=== PATIENT | female | born 1940 | race Caucasian/White ===

== ENCOUNTER → 2020-07-08 | Outpatient (CLI) | payer MEDICARE | END | disposition home or self-care (01) | LOC: LABPAT 14:21 | PROVIDERS: ATTEND Orthopaedic Surgery | DX: Z01.812 Encounter for preprocedural laboratory examination (principal) | CPT/HCPCS: 87070 ==

== ENCOUNTER 2020-08-12 05:34 | Day surgery (SDC) | payer MEDICARE ==
[2020-08-07 16:13] VITALS: BMI 22.4
--- NOTE | 2020-08-11 11:36 | HP ---
HISTORY AND PHYSICAL CHIEF COMPLAINT: Right knee pain. HISTORY OF PRESENT ILLNESS: Patient is a 80-year-old retired female who presents with progressive right knee pain for the past several years. It has worsened recently. She is ambulating with a cane. She notes the knee does give out and she has fallen twice recently. She has tried medications in addition to injections with only partial temporary relief. She notes the pain does significantly limit her function and activities. PAST MEDICAL HISTORY: Significant for COPD, arthritis, history of leukemia. PAST SURGICAL HISTORY: Significant for bone marrow transplant, bilateral eye surgery, and previous colonoscopy. CURRENT MEDICATIONS: Aspirin, atorvastatin. FAMILY HISTORY: Significant for heart disease and cancer. SOCIAL HISTORY: Significant for previous tobacco use. She also admits to social alcohol use. 16 POINT REVIEW OF SYSTEMS: Otherwise reviewed and is noncontributory. PHYSICAL EXAMINATION: On examination, the patient is approximately 4 foot 11, 115 pounds of mesomorphic habitus. HEENT: Exam is nonfocal. NECK: Supple. She has painless passive motion of the right hip. Straight leg raise is negative. Active motion right knee -10 to 115 degrees of flexion. She has a trace effusion. She is tender about the lateral joint line. Collaterals are stable, Karen is negative, Junior's is equivocal. She has genu valgum alignment. Her distal neurovascular appears intact in the right lower extremity. Previous weightbearing notch, lateral and Merchant views of the right knee obtained in the office show severe lateral and patellofemoral compartment narrowing with bone-on- bone changes. There is subchondral sclerosis. IMPRESSION: 1. 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 2. History of COPD. 3. History of leukemia. RECOMMENDATIONS: I talked to the patient at length regarding her condition and treatment options. At this point, she is quite limited because of pain related to her osteoarthrosis despite conservative measures. She opts to proceed with surgery. We will plan to proceed with right total knee arthroplasty. Risks and benefits were discussed at length in layman's terms. We will institute DVT prophylaxis postoperatively. The patient underwent preoperative medical evaluation by her primary care physician and bush hog operator. MMODL / IJN: [id number] /
[~2020-08-12 05:34] MED LIST: TRANEXAMIC ACID 1,000 MG in SODIUM CHLORIDE 0.9% 100 ML IVPB ONE
[2020-08-12] MEDS ORDERED: ROPIVACAINE 246.25 MG, EPINEPHrine 0.5 MG, KETOROLAC 30 MG, cloNIDine HCL/PF 80 MCG, WA... MISCELLANE ONE ×5 (06:00)
[2020-08-12] MEDS ORDERED: MIDAZOLAM 2 MG/2 ML VIAL IV PRN (06:20)
[2020-08-12] MEDS ORDERED: LIDOCAINE 1% (10MG/ML) FOR IV START INTRADERMA PRN (06:20)
[2020-08-12] MEDS: ACETAMINOPHEN TAB 500 MG TAB PO ONE ×2 (06:23→14:06)
[2020-08-12] MEDS: MELOXICAM 7.5 MG TAB PO ONE ×2 (06:24→14:06)
[2020-08-12] MEDS: LACTATED RINGERS 1,000 ML IV SCH ×2 (06:32→07:29)
[2020-08-12] MEDS: ONDANSETRON 4 MG/2 ML VIAL IVP ONE ×2 (06:53→14:07)
[2020-08-12] MEDS: DEXAMETHASONE SOD PHOSPHATE 10 MG/ML 1 ML VIAL IV ONE ×2 (06:53→14:07)
[2020-08-12] MEDS ORDERED: PROPOFOL 10 MG/ML 20 ML VIAL IV ONE (07:24)
[2020-08-12] MEDS ORDERED: SUCCINYLCHOLINE CHLORIDE 100 MG/5 ML SYR IV ONE (07:24)
[2020-08-12] MEDS ORDERED: SODIUM CHLORIDE 0.9% 100 ML BAG ONE (07:24)
[2020-08-12] MEDS ORDERED: NEOSTIGMINE 1 MG/ML 10 ML VIAL ONE (07:24)
[2020-08-12] MEDS ORDERED: MIDAZOLAM 2 MG/2 ML VIAL ONE (07:24)
[2020-08-12] MEDS ORDERED: GLYCOPYRROLATE 0.2 MG/ML 2 ML VIAL ONE (07:24)
[2020-08-12] MEDS ORDERED: fentaNYL (PF) 50 MCG/ML 2 ML AMP ONE (07:24)
[2020-08-12] MEDS ORDERED: ONDANSETRON 4 MG/2 ML VIAL ONE (07:24)
[2020-08-12] MEDS ORDERED: ROCURONIUM 10 MG/ML (10 ML VIAL) IV ONE (07:24)
[2020-08-12] MEDS ORDERED: PHENYLEPHRINE-0.9% NACL SYG 1 MG/10 ML SYRINGE ONE (07:24)
[2020-08-12] MEDS ORDERED: TRANEXAMIC ACID 1,000 MG/10 ML VIAL ONE (07:24)
[2020-08-12] MEDS ORDERED: ROPIVACAINE 0.2%-NS ON-Q PUMP 1,090 MG, EMPTY PAIN BALL 1 EACH MISCELLANE PRN (07:29)
--- NOTE | 2020-08-12 07:29 | P.ANPRN ---
Procedure Note - Anesthesia - Nerve Block Performed Right Adductor Canal Infusion Time Out Performed: Yes ([id number]) Date of Procedure: 08/12/20 Procedure Start Time: 06:38 Procedure Stop Time: 06:50 Location of Patient: PreOp Indication: Acute Post-Operative Pain, Analgesia, Requested by Surgeon Specifically requested for management of pain by : Kumar Mata Sedation Type: Sedate with meaningful contact maintained Preparation: Sterile Prep, Sterile Dressing Position: Supine Catheter: Indwelling Needle Types: Pajunk Needle Gauge: 18 Ultrasound used to visualize needle placement: Yes Ultrasound used to observe medication spread: Yes Injectate: 0.5% Ropivacaine (see comment for volume) (20 ML) Blood Aspirated: No Pain Paresthesia on Injection Noted: No Resistance on Injection: Normal Image Stored and Saved: Yes Events: Uneventful and Well Tolerated
[2020-08-12] MEDS ORDERED: MAGNESIUM HYDROXIDE 2,400 MG/10 ML CUP PO PRN (09:10)
[2020-08-12] MEDS ORDERED: traMADol 50 MG TAB PO PRN (09:10)
[2020-08-12] MEDS ORDERED: ONDANSETRON 4 MG/2 ML VIAL IVP PRN (09:10)
[2020-08-12] MEDS ORDERED: ACETAMINOPHEN TAB 325 MG TAB PO PRN (09:10)
[2020-08-12] MEDS ORDERED: NALOXONE 0.4 MG/ML 1 ML VIAL IV PRN (09:10)
--- NOTE | 2020-08-12 09:33 | P.OP ---
Date of Procedure: 08/12/20 Preoperative Diagnosis: Right knee severe tricompartmental osteoarthrosis Postoperative Diagnosis: Same Procedure(s) Performed: Right total knee arthroplastycementedcruciate retaining Implants: Depuy Attune size 5 narrow cemented femoral component, size 5 cemented tibial component, 11 mm articular surface, 32 mm cemented patellar component. This is a cruciate retaining implant. Anesthesia: GETA, regional, local Surgeon: Kumar Mata Firmware Developer #1: Nelson Loera Estimated Blood Loss (ml): 50 Pathology: other (Bone fragments) Condition: stable Disposition: PACU Indications for Procedure: The patient's a 80-year-old female who presents with progressive right knee pain secondary to osteoarthrosis despite conservative measures. A discussion of the risks and benefits of continued conservative measures versus operative intervention was made with patient. She opted to proceed with surgery. Operative risks to include infection, neurovascular injury, development of blood clots, possible component loosening, possible instability need for subsequent procedures was discussed. Informed consent was obtained. Operative Findings: As below Description of Procedure: The patient was brought to the operating room, and after induction of general anesthesia the right lower extremity was prepped and draped in a normal fashion. The tourniquet was inflated to 270 mmHg. A longitudinal incision extending 3 finger breaths above the superior pole of the patella extending to the medial aspect the tibial tubercle was then made. The skin and subcutaneous tissues were divided sharply. Electrocautery was used for hemostasis. A medial parapatellar arthrotomy was then performed. The medial soft tissues to include the superficial and deep portions of the medial collateral ligament as well as the medial hamstring tendons were elevated subperiosteally. The proximal medial tibia osteophytes were carefully removed. The patella was everted. The knee was flexed. A portion of the retropatellar fat pad was excised sharply. The anterior cruciate ligament was sacrificed. A starting hole was made in the distal femur 1 cm anterior to the posterior cruciate origin. An intramedullary femoral guide was gently inserted planning on 5 valgus distal cut with 9 mm distal resection. The cutting block was pinned in place. The distal cut was then made. The posterior referencing sizing guide was utilized. 3 of external rotation was built into the system and verified off the trans- epicondylar axis and the posterior condyles. I felt size 5 narrow was most appropriate. The cutting block was pinned in place. The anterior, posterior, and chamfer cuts were then made. The bone fragments were removed. A sulcus cut was then made with the appropriate guide. The trial size 5 narrow femoral component was then placed and was fully seated. There was good anterior to posterior and medial to lateral fit. The distal peg holes were then drilled. The trial component was then removed. Attention was then paid towards preparing the proximal tibia. An extra medullary guide was utilized in line with the tibial shaft and second metatarsal distally. A 7 posterior slope was planned. I planned on 2 mm resection from the lateral compartment. The cutting block was pinned in place. The proximal tibial cut was then made. The bone was removed in one fragment. The remnants of the medial and lateral menisci were excised the capsule junction with electrocautery. The tibia sized most appropriately at size 5. The posterior osteophytes off the distal femur were carefully removed with a curved osteotome. The trial tibial and femoral components were placed along with a 11 millimeters articular surface. I was able to obtain full flexion and extension with good stability with varus and valgus stress. After several flexion and extension cycles, the tibial rotation was marked with electrocautery in line with the medial one third of the tibial tubercle. Attention was then paid towards preparing the patella. A patella reamer was utilized taking this down to 14 mm of bone stock. A good flush cut was made. The patella sized most appropriately at 32 millimeters. The peg holes were then drilled. The trial component was placed. The knee was taken through a range of motion. I had good patellofemoral tracking with no hands technique. The trial components were then removed. The tibia was prepared in the appropriate rotation with appropriate drill and keel punch. The flexion and extension gaps were checked and felt to be symmetric. The soft tissues were injected with ropivacaine. The bony surfaces were prepared with pulsatile lavage and dried. The deep tibial component was then cemented in place and was fully seated. Excess cement was removed. The femoral component was cemented in place and was fully seated. Again excess cement was removed. The trial 11 millimeters surface was then inserted in the knee was put in full extension. The patella component was cemented in place. After the cement had sufficiently hardened, the knee was again taken through a range of motion. Again there was good stability in flexion and extension with varus and valgus stress. The trial articular surface was then removed. The final articular surface was placed and was impacted. Care was taken to avoid any soft tissue interposition. Pulsatile lavage was again utilized. The tourniquet was deflated with approximately 60 minutes total tourniquet time. There was minimal drainage therefore a deep drain was not placed. The medial parapatellar arthrotomy was then closed with #2 Ethibond suture. The subcutaneous tissues were reapproximated interrupted 2- 0 Vicryl sutures. The skin was reapproximated with 3-0 subarticular strata fix suture. Skin tape and adhesive was applied. A sterile dressing was applied. The patient was then awoken from sedation and transferred to recovery room in good condition. Blood loss was estimated at 50 milliliters. No complications were incurred. Sponge and needle counts were correct at the end the case. Tristen BEASLEY assisted during the major components this case to include exposure, bone resection, and implantation.
[2020-08-12] MEDS: HYDROmorphone 0.5 MG/0.5 ML SYRINGE IVP PRN ×2 (09:43→09:57)
--- NOTE | 2020-08-12 10:33 | XR ---
EXAMINATION TYPE: XR knee limited RT DATE OF EXAM: 08/12/2020 CLINICAL HISTORY: Right knee pain and arthritis status post total knee replacement. TECHNIQUE: Portable AP and crosstable lateral views of the right knee are obtained immediately posto peratively. COMPARISON: 06/27/2020 right knee radiograph FINDINGS: Metallic hardware from total right knee arthroplasty is seen and appears satisfactory in a lignment and position. There is evidence of recent surgery with diffuse subcutaneous gas and cutaneo us irregularity. No unexpected radiopaque foreign body. IMPRESSION: METALLIC HARDWARE FROM TOTAL RIGHT KNEE ARTHROPLASTY IS SATISFACTORY IN ALIGNMENT.
[2020-08-12] MEDS ORDERED: LACTATED RINGERS 1,000 ML IV ONE (12:32)
[2020-08-12] MEDS: HYDROcodone/APAP 5-325MG 1 EACH TAB PO PRN (13:55)
[2020-08-12] MEDS ORDERED: SENNOSIDES-DOCUSATE SODIUM 1 EACH TAB PO SCH (21:00)
[2020-08-12] MEDS: TIMOLOL 0.5% OPHTH DROPS 5 ML BTL BOTH EYES SCH (21:50)
[2020-08-12] MEDS: ENOXAPARIN 30 MG/0.3 ML SYRINGE SQ SCH (21:54)
--- NOTE | 2020-08-12 22:24 | P.CONS ---
History of Present Illness - Reason for Consult Consult date: 08/12/20 Medical management Requesting physician: Daniel Richmond - Chief Complaint Right knee surgery - History of Present Illness Consultation: This is a pleasant 80-year-old patient of Dr. Richmond. Chronic stable medical conditions include COPD, hyperlipidemia, osteoarthritis, severe scoliosis. Patient is undergoing right total knee arthroplasty. Pains controlled. No nausea vomiting. Did tolerate his supper. No chest pain or shortness breath. Sitting up comfortable. 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 Her grandson lives in the garage. Does use a cane sometimes. No smoking or alcohol. Physical examination: VITAL SIGNS: 97.5, 67, 17, 117/76, 100% on 2 L GENERAL: BMI 22.5, sitting up, awake. EYES: Pupils equal. Conjunctiva normal. HEENT: External appearance of nose and ears normal, oral cavity grossly normal. NECK: JVD not raised; masses not palpable. HEART: First and second heart sounds are normal; no edema. LUNGS: Respiratory rate normal; clear to auscultation. ABDOMEN: Soft, nontender, liver spleen not palpable, no masses palpable. PSYCH: Alert and oriented x3; mood and affect normal MUSCULAR skeletal: Evidence of OA Ammann dressing over the right knee. NEUROLOGICAL: Cranial nerves grossly intact; no facial asymmetry, power and sensation grossly intact. LYMPHATICS: No lymph nodes palpable in the axilla and neck INVESTIGATIONS none Assessment: -Right total knee arthroplasty -COPD -Hyperlipidemia -Severe scoliosis Plan: Home medications resumed. Getting IV fluids. Lovenox for DVT prophylaxis. Pain control. Care was discussed with the patient. Questions answered. Thank you Dr. Mata Past Medical History Past Medical History: Cancer, COPD, Hyperlipidemia, Musculoskeletal Disorder Additional Past Medical History / Comment(s): hx of CML last chemo 1996, frequent bronchitis, sinus problems, states severe scoliosis, History of Any Multi-Drug Resistant Organisms: None Reported Additional Past Surgical History / Comment(s): blocked tear duct, deric cataracts, port for chemo, now removed Past Anesthesia/Blood Transfusion Reactions: No Reported Reaction Past Psychological History: No Psychological Hx Reported Smoking Status: Former smoker Past Alcohol Use History: None Reported Additional Past Alcohol Use History / Comment(s): smoked in teens Past Drug Use History: None Reported - Past Family History Sister(s) Family Medical History: Cancer Additional Family Medical History / Comment(s): breast Medications and Allergies Home Medications Medication Instructions Recorded Confirmed Type Acetaminophen Tab [Tylenol] 325 mg PO BID 08/07/20 08/12/20 History Aspirin [Adult Low Dose Aspirin EC] 81 mg PO DAILY 08/07/20 08/12/20 History Atorvastatin [Lipitor] 10 mg PO DAILY 08/07/20 08/12/20 History Calcium Carbonate/Vitamin D3 1 each PO DAILY 08/07/20 08/12/20 History [Caltrate 600 Plus D3 Tablet] Montelukast [Singulair] 10 mg PO DAILY 08/07/20 08/12/20 History Multivitamins, Thera [Multivitamin 1 tab PO DAILY 08/07/20 08/12/20 History (formulary)] Potassium Chloride 10 meq PO DAILY 08/07/20 08/12/20 History Pseudoephedrine HCl [Sudafed] 60 mg PO DAILY PRN 08/07/20 08/12/20 History Tetrahydrozoline 0.05% Ophth 1 drop BOTH EYES DIRECTED 08/07/20 08/12/20 History [Visine Eye Drops] Timolol 0.5% Ophth Soln (Pf) 1 drops BOTH EYES BID 08/07/20 08/12/20 History [Timoptic 0.5% Ocudose] Vit C/E/Zn/Coppr/Lutein/Zeaxan 1 each PO DAILY 08/07/20 08/12/20 History [Preservision Areds 2 Softgel] Allergies Allergy/AdvReac Type Severity Reaction Status Date / Time No Known Allergies Allergy Verified 08/12/20 06:10 Physical Exam Vitals: Vital Signs Temp Pulse Pulse Pulse Resp BP BP 08/12/20 19:07 97.5 F L 67 17 08/12/20 14:00 98.5 F 59 L 16 08/12/20 13:00 52 L 16 08/12/20 12:30 54 L 16 08/12/20 12:00 64 16 10/20/20 11:30 63 16 08/12/20 11:00 53 L 16 115/62 08/12/20 10:30 54 L 16 120/62 08/12/20 10:15 54 L 14 115/58 08/12/20 10:00 58 L 16 132/64 08/12/20 09:45 61 16 132/64 08/12/20 09:30 71 16 129/60 08/12/20 09:28 96.9 F L 62 16 135/65 08/12/20 07:02 95 18 142/67 08/12/20 06:18 98.0 F 83 20 137/67 BP Pulse Ox 08/12/20 19:07 117/76 100 08/12/20 14:00 132/72 99 08/12/20 13:00 132/73 100 08/12/20 12:30 129/70 100 08/12/20 12:00 127/72 100 08/12/20 11:30 115/62 100 08/12/20 11:00 100 08/12/20 10:30 100 08/12/20 10:15 100 08/12/20 10:00 98 08/12/20 09:45 100 08/12/20 09:30 99 08/12/20 09:28 100 08/12/20 07:02 100 08/12/20 06:18 98 Intake and Output 08/12/20 08/12/20 08/12/20 06:59 14:59 22:59 Intake Total 1050 80 Output Total 50 Balance 1000 80 Intake: IV 1050 Intake, IV Titration 80 Amount Lactated Ringers 1,000 ml 80 @ 0 mls/hr IV .[facility] Rx#:[id number] Output: Estimated Blood Loss 50 Other: # Voids 1 Weight 52.3 kg 52.3 kg
[2020-08-13] MEDS: LACTATED RINGERS 1,000 ML IV SCH (01:59)
--- NOTE | 2020-08-13 06:00 | P.PN ---
Progress Note - Text Patient was seen at bedside at 5:30 AM. Patient is postop day 1 from right total knee replacement with adductor canal catheter placed for pain . Ropivacaine 0.2% infusion running at 8 ml per hour. VAS score is 0. Patient denies side effects. Lower extremity sensation and motor function is intact. Patient has ambulated. Dressing clean dry and intact over catheter site
[2020-08-13 06:46] LABS: Basophils % (A) 0 %; Eosinophils % (A) 0 %; HCT 33.7 % (34.0-46.0); Lymphocytes # (A) 1.6 k/uL (1.0-4.8); Lymphocytes % (A) 17 %; MCH 29.2 pg (25.0-35.0); MCHC 32.8 g/dL (31.0-37.0); MCV 89.1 fL (80.0-100.0); Mean Platelet Volume 7.9; Monocytes # (A) 0.8 k/uL (0-1.0); Monocytes % (A) 9 %; Neutrophils # (A) 6.5 k/uL (1.3-7.7); Neutrophils % (A) 72 %; Platelet Count 149 k/uL (150-450); RBC 3.78 m/uL (3.80-5.40); RDW 14.6 % (11.5-15.5); WBC 9.1 k/uL (3.8-10.6)
[2020-08-13] MEDS: ENOXAPARIN 30 MG/0.3 ML SYRINGE SQ SCH (07:55)
[2020-08-13] MEDS: TIMOLOL 0.5% OPHTH DROPS 5 ML BTL BOTH EYES SCH (07:56)
[2020-08-13] MEDS: HYDROcodone/APAP 5-325MG 1 EACH TAB PO PRN ×2 (07:59→14:02)
[2020-08-13 08:19] VITALS: BP 95/58; PULSE 75; RESP 18; TEMP 98
[2020-08-13] MEDS ORDERED: ASPIRIN 81 MG PO SCH (09:00)
[2020-08-13] MEDS ORDERED: MULTIVITAMINS, THERA 1 EACH TAB PO SCH (09:00)
[2020-08-13] MEDS ORDERED: ATORVASTATIN 10 MG TAB PO SCH (09:00)
[2020-08-13] MEDS ORDERED: VIT A,C & E-LUTEIN-MINERALS 1 EACH TAB PO SCH (09:00)
[2020-08-13] MEDS ORDERED: MONTELUKAST 10 MG TAB PO SCH (09:00)
[2020-08-13] MEDS ORDERED: CALCIUM CARB-VIT D 500MG-200UN 1 EACH TAB PO SCH (09:00)
--- NOTE | 2020-08-13 10:56 | P.PN ---
Subjective Progress Note Date: 08/13/20 Principal diagnosis: Status post right total knee arthroplasty Patient evaluated at bedside, she sitting comfortably. Her pain is well- controlled. She's ambulating very well. She denies any chest pain, shortness of breath, fever or chills. Objective - Vital Signs Vital signs: Vital Signs Temp 98.0 F 08/13/20 07:00 Pulse 75 08/13/20 07:00 Resp 18 08/13/20 07:00 BP 95/58 08/13/20 07:00 Pulse Ox 95 08/13/20 07:00 Intake & Output 08/12/20 08/13/20 08/13/20 18:59 06:59 18:59 Intake Total 1050 530 Output Total 50 Balance 1000 530 Weight 52.3 kg Intake: IV 1050 Intake, IV Titration 530 Amount Lactated Ringers 1,000 ml 80 @ 0 mls/hr IV [facility] Rx#:[id number] ceFAZolin 2 gm In Sodium 450 Chloride 0.9% 50 ml @ 100 mls/hr IVPB Q8HR [facility] Rx# :[id number] Output: Estimated Blood Loss 50 Other: # Voids 1 - Exam Right lower extremity: Incision is clean, dry, and intact. The exofin fusion tape is in good condition. There is minimal soft tissue swelling and ecchymosis surrounding the medial and lateral aspects of the incision. Calf is soft, no tenderness with palpation. Plantar flexion, dorsiflexion, EHL, FHL are intact. Sensory exam to light touch throughout the extremity is intact, dorsal pedis pulses 2+. - Labs CBC & Chem 7: 08/13/20 06:26 Labs: Abnormal Lab Results - Last 24 Hours (Table) 08/13/20 Range/Units 06:26 RBC 3.78 L (3.80-5.40) m/uL Hgb 11.0 L (11.4-16.0) gm/dL Hct 33.7 L (34.0-46.0) % Plt Count 149 L (150-450) k/uL Assessment and Plan Assessment: s/p right total knee athroplasty Plan: Pain control, plan for discharge home on [place] 5 mg/325 mg GI and DVT prophylaxis, aspirin 81 mg twice a day Wound care instructions were discussed Ice and elevation techniques discussed Home therapy and nursing's history Medical recommendations Plan for discharge home today Time with Patient: Less than 30
--- NOTE | 2020-08-13 10:59 | P.DS ---
Providers Date of admission: 08/12/2020 Expected date of discharge: 08/13/20 Attending physician: Kumar Mata [facility] Course: Date of admission: 08/12/2020 Date of discharge: 08/13/2020 Admission diagnosis: Status post post right total knee arthroplasty Discharge diagnosis: Same Attending physician: Dr. Mata Surgical procedures: Right total knee arthroplasty Brief history: Patient is a 80-year-old female with a history of progressive primary radial stress arthritis. At this point patient has failed conservative treatment measures and has opted to proceed with a elective right total knee arthroplasty. Hospital course: Details of patient's surgery can be found in operative report. Patient tolerated the procedure well and was subsequently transported to orthopedic floor. Patient's orthopeidc and medical care was provided daily. Patient had daily laboratory tests performed for evaluation of overall blood counts. Patient had daily physical therapy to include strengthening range of motion as well as education with walker ambulation. Patient was treated with Lovenox for their postoperative DVT prophylaxis during their inpatient stay. Patient was noted to have a relatively uneventful postoperative course. Patient reported satisfactory pain control with oral pain medications by postoperative day 0. Patient showed satisfactory progress with physical therapy. Patient moved steadily through the program and had no difficulty meeting the goals by postoperative day 1. Given patient's otherwise satisfactory course and having met physical therapy goals, plan is to discharge patient home on postoperative day 1. Discharge condition/disposition: Patient will be discharged home in stable condition. Discharge medications: Instructions are given on resumption of patient's normal daily medications per primary care recommendation, in addition patient will be prescribed Tyonek 5 mg/325 mg, Colace 100 mg. Discharge instructions: 1. Wound care and infection precautions, keep incision dry and covered while showering, no lotions, creams, moisturizers. No soaking, tubs, pools, hottubs. Do not scrub over the incision. 2. Weight-bear as tolerated with walker / cane until follow-up. 3. Ice and elevate when necessary. Do not exceed 20 minutes per hour with ice pack. 4. Utilize compression sleeve until seen at first follow up appointment. 5. Visiting nursing care. 6. Home physical therapy including home CPM. 7. Pain meds and anticoagulants per prescription. 8. Pain medication has potential to cause constipation. Increase oral fluid and fiber intake. Contact primary care provider if you have not had a bowel movement within 48 hours after discharge 9. No anti-inflammatory medication until discussed at first post operative visit, this including Motrin, Aleve, Mobic, Diclofenac,. 10. Follow up in office at 2 weeks postop with Tristen Loera PA-C 11. Follow up with your primary care doctor 7-10 days after discharge. 12. Contact [facility] with any questions, . Procedures: Right total knee arthroplasty Patient Condition at Discharge: Good Plan - Discharge Summary Discharge Rx Participant: No New Discharge Prescriptions: New Aspirin [Adult Low Dose Aspirin EC] 81 mg PO BID #60 tablet. Docvalentine [Colace] 100 mg PO DAILY #30 capsule Hydrocodone/Acetaminophen [Tyonek 5-325] 1 each PO Q6HR PRN #28 tab PRN Reason: Pain Discontinued Aspirin [Adult Low Dose Aspirin EC] 81 mg PO DAILY No Action Timolol 0.5% Ophth Soln (Pf) [Timoptic 0.5% Ocudose] 1 drops BOTH EYES BID Tetrahydrozoline 0.05% Ophth [Visine Eye Drops] 1 drop BOTH EYES DIRECTED Multivitamins, Thera [Multivitamin (formulary)] 1 tab PO DAILY Montelukast [Singulair] 10 mg PO DAILY Atorvastatin [Lipitor] 10 mg PO DAILY Vit C/E/Zn/Coppr/Lutein/Zeaxan [Preservision Areds 2 Softgel] 1 each PO DAILY Pseudoephedrine HCl [Sudafed] 60 mg PO DAILY PRN PRN Reason: sinus problems Potassium Chloride 10 meq PO DAILY Calcium Carbonate/Vitamin D3 [Caltrate 600 Plus D3 Tablet] 1 each PO DAILY Acetaminophen Tab [Tylenol] 325 mg PO BID Discharge Medication List Acetaminophen Tab [Tylenol] 325 mg PO BID 08/07/20 [History] Atorvastatin [Lipitor] 10 mg PO DAILY 08/07/20 [History] Calcium Carbonate/Vitamin D3 [Caltrate 600 Plus D3 Tablet] 1 each PO DAILY 08/07/20 [History] Montelukast [Singulair] 10 mg PO DAILY 08/07/20 [History] Multivitamins, Thera [Multivitamin (formulary)] 1 tab PO DAILY 08/07/20 [History] Potassium Chloride 10 meq PO DAILY 08/07/20 [History] Pseudoephedrine HCl [Sudafed] 60 mg PO DAILY PRN 08/07/20 [History] Tetrahydrozoline 0.05% Ophth [Visine Eye Drops] 1 drop BOTH EYES DIRECTED 08/07/20 [History] Timolol 0.5% Ophth Soln (Pf) [Timoptic 0.5% Ocudose] 1 drops BOTH EYES BID 08/07/20 [History] Vit C/E/Zn/Coppr/Lutein/Zeaxan [Preservision Areds 2 Softgel] 1 each PO DAILY 08/07/20 [History] Aspirin [Adult Low Dose Aspirin EC] 81 mg PO BID #60 tablet.dr 08/13/20 [Rx] Docusate [Colace] 100 mg PO DAILY #30 capsule 08/13/20 [Rx] Hydrocodone/Acetaminophen [Tyonek 5-325] 1 each PO Q6HR PRN #28 tab 08/13/20 [Rx] Follow up Appointment(s)/Referral(s): [facility] [NON-STAFF] - As Needed [facility] [NON-STAFF] - As Needed (Continuous Passive Motion knee machine) Nelson Loera PAC [PHYSICIAN JUNIOR ACCOUNTANT] - 08/27/20 2:30 pm Activity/Diet/Wound Care/Special Instructions: Orthopedic Discharge Instructions: 1. Wound care and infection precautions, keep incision dry and covered while showering, no lotions, creams, moisturizers. No soaking, pools, hot tubs. Do not scrub over incision. 2. Weight-bear as tolerated with walker / cane until follow-up. 3. Ice and elevate when necessary. Do not exceed 20 minutes per hour with ice pack. 4. Utilize compression sleeve until seen at first follow up appointment. 5. Pain meds and anticoagulants per prescription. 6. Pain medication has potential to cause constipation. Increase oral fluid and fiber intake. Contact primary care provider if you have not had a bowel movement within 48 hours after discharge. 7. No anti-inflammatory medication until discussed at first post operative v isit, this including Motrin, Aleve, Mobic, Diclofenac. 8. Follow up in office at 2 weeks postop with Tristen Loera PA-C 9. Follow up with your primary care doctor 7-10 days after discharge. 10. Contact [facility] with any questions, . Discharge Disposition: HOME WITH HOME HEALTH SERVICES
--- NOTE | 2020-08-13 20:14 | P.PN ---
Progress Note - Text Progress Note Date: 08/13/20 - Chief Complaint Right knee surgery Consultation: This is a pleasant 80-year-old patient of Dr. Richmond. Chronic stable medical conditions include COPD, hyperlipidemia, osteoarthritis, severe scoliosis. Underwent right total knee arthroplasty. Today-. Pain control. Did work with therapy. No nausea vomiting. Did tolerate her breakfast. Feeling well. Review of systems: Was done for constitutional, cardiovascular, GI, pulmonary. relevant finding as above Current medications reviewed in today's electronic records Physical examination: VITAL SIGNS: 98, 75, 18, 95/58, 95% room air GENERAL: Sitting up, comfortable. EYES: Pupils equal. Conjunctiva normal. NECK: JVD not raised; masses not palpable. HEART: First and second heart sounds are normal; no edema. LUNGS: Respiratory rate normal; clear to auscultation. ABDOMEN: Soft, nontender, liver spleen not palpable, no masses palpable. PSYCH: Alert and oriented x3; mood and affect normal MUSCULAR skeletal: Evidence of OA Ammann dressing over the right knee. INVESTIGATIONS White count 9 hemoglobin 11 platelets 149 Assessment: -Right total knee arthroplasty -COPD -Hyperlipidemia -Severe scoliosis Plan: Stable. Continue current medication. Follow-up with PCP. Thank you Dr. Mata
== END 2020-08-13 14:23 | disposition home health service (06) ==
LOC: OR 05:34 → 4SSUR 09:23 → OR 08-13 14:23
PROVIDERS: ATTEND Orthopaedic Surgery
DX: M17.11 Unilateral primary osteoarthritis, right knee (principal); M25.761 Osteophyte, right knee; J44.9 Chronic obstructive pulmonary disease, unspecified; E78.5 Hyperlipidemia, unspecified; M41.9 Scoliosis, unspecified; Z92.21 Personal history of antineoplastic chemotherapy; Z85.6 Personal history of leukemia; Z98.41 Cataract extraction status, right eye; Z98.42 Cataract extraction status, left eye; Z98.890 Other specified postprocedural states; Z87.891 Personal history of nicotine dependence; Z80.3 Family history of malignant neoplasm of breast; Z79.82 Long term (current) use of aspirin; Z79.899 Other long term (current) drug therapy; M48.061 Spinal stenosis, lumbar region without neurogenic claudication; E78.00 Pure hypercholesterolemia, unspecified; Z82.49 Family history of ischemic heart disease and other diseases of the circulatory system
CPT/HCPCS: 97116; 97161; 64448; 76942; 85025; 88300; 73560; 27447; C1776; J2250; J0171; J1100; J2710; J0690; J2405; J3010; J1885; J1650 ×2; J2795 ×2; J2370; J0330; J2704; J0735; J1170

== ENCOUNTER → 2021-09-09 | Outpatient (CLI) | payer MEDICARE ==
--- NOTE | 2021-09-09 15:23 | XR ---
Right knee HISTORY: M17.11 Comparison prior exam 08/12/2020 3 views of the right knee Patient is status post right knee arthroplasty. There is anatomic alignment. Bone mineralization is r educed. No evident fracture or dislocation. Suspect there is soft tissue swelling. Lucency in the sof t tissues has resolved in the interval. Probable postprocedural changes noted in the posterior patell a show similar appearance. IMPRESSION: Soft tissue swelling, postop changes.
== END | disposition home or self-care (01) ==
LOC: RADXRMAIN 10:56
PROVIDERS: ATTEND Orthopaedic Surgery
DX: M79.89 Other specified soft tissue disorders (principal); Z98.890 Other specified postprocedural states